=== PATIENT | male | born 1960 | race Caucasian/White ===

== ENCOUNTER → 2016-06-18 | Outpatient (CLI) | payer MEDICARE, MEDICAID ==
[~2016-06-18] MED LIST: ATARAX-DPS25 MG PO; ATIVAN-DPS0.5 MG PO; ATIVAN-DPS1 MG PO; BROVANA15 MCG/2 M IH; BYSTOLIC5 MG PO; CALTRATE-600 D600 MG PO; COGENTIN DPS1 MG PO; COLACE-DPS100 MG PO; DULERA 200/58.8 GM IH; DUONEB DPS3 ML IH; FLONASE 0.05% D16 GM NS; FOSAMAX70 MG PO; HABITROL DPS14 MG TP; HUMALOG100 UNIT/1 SQ; LASIX DPS20 MG PO; LATUDA80 MG PO; LEVAQUIN DPS750 MG PO; LIPITOR DPS20 MG PO; LYRICA50 MG PO; MIRALAX PACKET17 GM PO; MOBIC15 MG PO; MOTRIN-DPS400 MG PO; MUCINEX600 MG PO; MYLANTA PO; PENNSAID112 GM TD; PERIDEX DPS473 ML PO; PETROLATUM TP; PREDNISONE PO; PREPARATION H C51 G1 PR; PROTONIX40 MG PO; PULMICORT0.5 MG/2 M IH; RESTORIL DPS30 MG PO; ROBITUSSIN DM S PO; SINEQUAN-DPS50 MG PO; SPIRIVA RESPIMAT4 G1 IH; THERAPEUTIC MUL1 TA1 PO; TRICOR145 MG PO; TRILIPIX135 MG PO; TUMS DPS500 MG PO; TYLENOL DPS325 MG PO; ULTRAM ER100 MG PO; VENTOLIN HFA8 GM IH; ZYPREXA5 MG PO
== END | disposition home or self-care (01) ==
DX: M54.5 Low back pain (principal); Z98.890 Other specified postprocedural states; Z98.1 Arthrodesis status; W19.XXXA Unspecified fall, initial encounter

== ENCOUNTER 2016-07-10 09:13 | Emergency (ER) | payer MEDICARE, MEDICAID ==
--- NOTE | 2016-07-12 13:15 | ER ---
ADMIT: 07/10/2016 RM/LOC: ER [facility] MR#: [id number] [id number] [id number] [place] [address] Emergency Room Report SEX: M AGE: 56 : 1960 DATE: 07/10/2016 BRIEF ADDENDUM: Please see my T-sheet for complete review of systems, past medical history, and physical exam. CHIEF COMPLAINT: Shortness of breath. HISTORY OF PRESENT ILLNESS: This is a 56-year-old gentleman, who resides at [facility], presents today with shortness of breath for the past 8 hours. The nurse who takes care of him called over previously, says he has had this problem in the past. Tried to call [facility], who referred him to be evaluated here. Denies any initiating event. He does have a history of COPD and smoking. Admits to increase in productive green sputum. No fever, chills, sweating, chest pain. He does have some anxiety. PAST MEDICAL HISTORY: Significant for: 1. Diabetes. 2. Hypertension. 3. COPD. 4. Bipolar. 5. Anxiety. 6. Schizoaffective disorder. 7. GERD. ALLERGIES: CODEINE AND HYDROCODONE. COURSE IN EMERGENCY ROOM: PHYSICAL EXAMINATION: GENERAL: The patient is seen and examined. He is afebrile and nontoxic. He is in no acute distress. HEENT: Head is normocephalic and atraumatic. Eyes, nonerythematous. Pharynx, nonerythematous. No tonsillar exudates. NECK: Soft, supple. RESPIRATORY: No respiratory distress. He does have some rhonchi and wheezes bilaterally. He speaks in full sentences. HEART: Regular with no murmurs, gallops, or rubs. ABDOMEN: Soft and nontender. EXTREMITIES: Nontender. No pedal edema. NEURO: He is alert and oriented, however, mildly anxious. Did get lab work on him, white count 14.3, hemoglobin 12.4, hematocrit 37.7, platelets 290. Sodium 138, potassium 3.8, BUN 15. Chest x-ray shows nothing acute, some chronic fibrotic changes bilaterally. He was given first dose of Zithromax 500 mg p.o., as well as prednisone 40 mg p.o. prior to discharge. Diagnosed with chronic obstructive pulmonary disease exacerbation. ADMIT: 07/10/2016 RM/LOC: [facility] MR#: [id number] [id number] [place] [address] [place] [address] Emergency Room Report SEX: M AGE: 56 : 1960 IMPRESSION: 1. Chronic obstructive pulmonary disease exacerbation. 2. Diabetes. 3. Hypertension. 4. Schizoaffective. DISPOSITION: The patient will return to [facility]. He is to wear oxygen as needed to keep saturations greater than 90. Continue Zithromax 250 mg p.o. x4 days starting tomorrow as well as prednisone 40 mg for 4 days to start tomorrow. Follow up with Dr. Trinh next week. He is discharged back to [facility] in stable condition. RAZIA Townsend / Ubaldo Diaz MD / diana JOB #: [id number] CC: Ubaldo Diaz MD, Attending Physician Antoni Dixon MD, Family Physician
== END 2016-07-10 11:00 | disposition home or self-care (01) ==
LOC: ER 09:13
DX: J45.901 Unspecified asthma with (acute) exacerbation (principal); E11.9 Type 2 diabetes mellitus without complications; I10 Essential (primary) hypertension; K21.9 Gastro-esophageal reflux disease without esophagitis; F31.9 Bipolar disorder, unspecified; F25.9 Schizoaffective disorder, unspecified; Z88.5 Allergy status to narcotic agent; Z88.8 Allergy status to other drugs, medicaments and biological substances